=== PATIENT | male | born 2000 | race Native Hawaiian/Other Pacific Islander ===

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

== ENCOUNTER 2021-05-14 14:45 | Outpatient (CLI) | payer OTHER, BC ==
--- NOTE | 2021-05-14 15:23 | XRAY Report ---
PROCEDURE: Lumbar Spine 2 View INDICATIONS: LOW BACK PX TECHNIQUE: 2 views of the lumbar spine were acquired. COMPARISON: None. FINDINGS: Bones: 5 [id number] vertebrae are present. There is normal bony alignment. No vertebral body compression fractures. No suspicious bony lesions. Soft tissues: Overlying bowel gas pattern is normal. No suspicious soft tissue calcifications. IMPRESSION: Unremarkable radiographic examination of lumbar spine. Reviewed by: Josias Potter MD on 05/14/2021 3:22 PM PDT Approved by: Josias Potter MD on 05/14/2021 3:22 PM PDT Station ID: [id number]
== END 2021-05-14 23:59 | disposition home or self-care (01) ==
LOC: DI.N 14:45
PROVIDERS: ATTEND Physician Assistant Medical
DX: S30.0XXA Contusion of lower back and pelvis, initial encounter (principal)

== ENCOUNTER 2023-09-16 08:00 | Outpatient (CLI) | payer OTHER, BC ==
--- NOTE | 2023-09-16 10:56 | XRAY Report ---
PROCEDURE: Forearm RT INDICATIONS: RIGHT HAND/FOREARM INJURY TECHNIQUE: 2 views of the forearm were acquired. COMPARISON: None. FINDINGS: Bones: No fractures or dislocations. No suspicious bony lesions. Soft tissues: No suspicious soft tissue calcifications or masses. IMPRESSION: No acute bony abnormality. Reviewed by: Hira Kwon MD on 09/16/2023 10:55 AM [facility] Approved by: Hira Kwon MD on 09/16/2023 10:55 AM [facility] Station ID: [id number]
--- NOTE | 2023-09-16 10:56 | XRAY Report ---
PROCEDURE: Hand 3 View RT INDICATIONS: RIGHT HAND/FOREARM INJURY TECHNIQUE: 3 views of the hand(s) acquired. COMPARISON: None. FINDINGS: Bones: No fractures or dislocations. No suspicious bony lesions. Soft tissues: No suspicious soft tissue calcifications or masses. IMPRESSION: No acute bony abnormality. Reviewed by: Hira Kwon MD on 09/16/2023 10:55 AM [facility] Approved by: Hira Kwon MD on 09/16/2023 10:55 AM [facility] Station ID: [id number]
== END 2023-09-16 23:59 | disposition home or self-care (01) ==
LOC: DI.WOS 08:00
PROVIDERS: ATTEND Physician Assistant Surgical
DX: M67.843 Other specified disorders of tendon, right hand (principal)